=== PATIENT | female | born 1935 | race Caucasian/White ===

== ENCOUNTER 2016-08-21 12:59 | Emergency (ER) | payer MEDICARE, OTHER ==
[~2016-08-21] VITALS: Ht 157.5 cm; Wt 54.0 kg
[~2016-08-21 12:59] MED LIST: PRED20 PO; SULF1TAB47 PO; THYR15 PO
[2016-08-21 13:16] VITALS: BP 133/73; PULSE 57; RESP 16; TEMP 97.6; O2SAT 97
[2016-08-21 13:25] VITALS: BP 145/60; PULSE 54; RESP 18; O2SAT 98
--- NOTE | 2016-08-21 13:57 | PD ---
HPI Chief Complaint: Cardiac Complaint Time Seen by Provider: 13:45 Travel History International Travel<30 days: No Contact w/Intl Traveler<30days: No Traveled to known affect area: No History of Present Illness HPI This 81-year-old female says she woke up this morning vertigo. The vertigo lasted for several hours and is likely resolved. She has a friend who checked her pulse and told her that her heart was stopping of the period he is not having any chest pain or shortness of breath. She has no history of heart disease. She is here for evaluation of the skipped beat. She says she has had vertigo in the past but not for a while. She has no headache. She is on no medication. Her friend did give her an aspirin prior to coming here. She is not having any pain now [facility] Past Medical History Medical History: Denies Significant Hx Diabetes: No Diminished Hearing: Yes Immunizations Current: No Thyroid Disease: Yes Tetanus Vaccination: Unknown Influenza Vaccination: No ?: Not Past Surgical History Hysterectomy: Yes Tonsillectomy: Yes Social History Alcohol Use: Yes ([facility]) Tobacco Use: No Substance Use: No Allergies-Medications (Allergen,Severity, Reaction): Coded Allergies: Penicillin (Verified Allergy, Mild, 08/21/16) Reported Meds & Prescriptions Reported Meds & Active Scripts Active No Active Prescriptions or Reported Medications Review of Systems General / Constitutional: No: Fever, Chills Eyes: No: Diploplia, Blurred Vision HENT: Positive: Vertigo Cardiovascular: No: Chest Pain or Discomfort, Palpitations Respiratory: No: Cough, Shortness of Breath Gastrointestinal: No: Vomiting, Diarrhea Genitourinary: No: Urgency, Frequency Musculoskeletal: No: Myalgias Skin: No Rash, No Itching Neurologic: No: Weakness Hematologic/Lymphatic: No: Easy Bruising Physical Exam Narrative GENERAL: Well-developed female. Heart rate is 52 SKIN: Focused skin assessment warm/dry. HEAD: Atraumatic. Normocephalic. EYES: Pupils equal and round. No scleral icterus. No injection or drainage. ENT: No nasal bleeding or discharge. Mucous membranes pink and moist. NECK: Trachea midline. No JVD. CARDIOVASCULAR: Regular rate and rhythm. No murmur appreciated. RESPIRATORY: No accessory muscle use. Clear to auscultation. Breath sounds equal bilaterally. GASTROINTESTINAL: Abdomen soft, non-tender, nondistended. Hepatic and splenic margins not palpable. MUSCULOSKELETAL: No obvious deformities. No clubbing. No cyanosis. No edema. NEUROLOGICAL: Awake and alert. No obvious cranial nerve deficits. Motor grossly within normal limits. Normal speech. PSYCHIATRIC: Appropriate mood and affect; insight and judgment normal. Data Data Last Documented VS Vital Signs Date Time Temp Pulse Resp B/P Pulse Ox O2 Delivery O2 Flow Rate FiO2 08/21/16 14:33 47 18 134/70 98 Room Air 08/21/16 13:16 97.6 Orders Complete Blood Count With Diff (08/21/16 13:53) Comprehensive Metabolic Panel (08/21/16 13:53) Troponin I (08/21/16 13:53) Urinalysis - C+S If Indicated (08/21/16 13:53) Magnesium (Mg) (08/21/16 13:53) Thyroid Stimulating Hormone (08/21/16 13:53) Labs Laboratory Tests Test 08/21/16 08/21/16 13:38 14:40 White Blood Count 7.2 TH/MM3 Red Blood Count 4.39 MIL/MM3 Hemoglobin 13.2 GM/DL Hematocrit 40.3 % Mean Corpuscular Volume 91.8 FL Mean Corpuscular Hemoglobin 30.1 PG Mean Corpuscular Hemoglobin 32.8 % Concent Red Cell Distribution Width 13.5 % Platelet Count 202 TH/MM3 Mean Platelet Volume 8.2 FL Neutrophils (%) (Auto) 60.8 % Lymphocytes (%) (Auto) 31.4 % Monocytes (%) (Auto) 5.7 % Eosinophils (%) (Auto) 1.2 % Basophils (%) (Auto) 0.9 % Neutrophils # (Auto) 4.3 TH/MM3 Lymphocytes # (Auto) 2.3 TH/MM3 Monocytes # (Auto) 0.4 TH/MM3 Eosinophils # (Auto) 0.1 TH/MM3 Basophils # (Auto) 0.1 TH/MM3 CBC Comment DIFF FINAL Differential Comment Sodium Level 142 MEQ/L Potassium Level 4.0 MEQ/L Chloride Level 106 MEQ/L Carbon Dioxide Level 27.2 MEQ/L Anion Gap 9 MEQ/L Blood Urea Nitrogen 14 MG/DL Creatinine 0.83 MG/DL Estimat Glomerular Filtration 66 ML/MIN Rate Random Glucose 140 MG/DL Calcium Level 8.9 MG/DL Magnesium Level 2.2 MG/DL Total Bilirubin 0.4 MG/DL Aspartate Amino Transf 19 U/L (AST/SGOT) Alanine Aminotransferase 19 U/L (ALT/SGPT) Alkaline Phosphatase 88 U/L Troponin I LESS THAN 0.02 NG/ML Total Protein 7.2 GM/DL Albumin 3.6 GM/DL Thyroid Stimulating Hormone 3.540 uIU/ML 3rd Gen Urine Collection Type CLEAN CATCH Urine Color YELLOW Urine Turbidity CLOUDY Urine pH 7.5 Urine Specific [place] 1.010 Urine Protein NEG mg/dL Urine Glucose (UA) NEG mg/dL Urine Ketones NEG mg/dL Urine Occult Blood SMALL Urine Nitrite NEG Urine Bilirubin NEG Urine Leukocyte Esterase TRACE Urine RBC 0-3 /hpf Urine WBC 0-2 /hpf Urine Amorphous Sediment LARGE Microscopic Urinalysis Comment CULT NOT INDICATED MDM Medical Decision Making Medical Screen Exam Complete: Yes Emergency Medical Condition: Yes Medical Record Reviewed: Yes Differential Diagnosis Differential includes dysrhythmia, vertigo, Narrative Course Patient had vertigo at home which is improving. I don't find any neurologic deficits. Her concern was an irregular pulse found by her friend. She has been on a monitor and has occasional APCs which I believe is the source of the irregularity. Her lab work is unremarkable. She is stable for discharge Diagnosis Primary Impression: Vertigo Additional Impression: Atrial premature contractions Scripts No Active Prescriptions or Reported Meds Disposition: 01 DISCHARGE HOME Condition: Stable Cristo Jackson MD Aug 21, 2016 13:57
[2016-08-21 14:07] LABS: AUTOMATED NEUTROPHIL # 4.3 TH/MM3 (1.8-7.7); BASOPHIL # 0.1 TH/MM3 (0-0.2); BASOPHIL % 0.9 % (0.0-2.0); EOSINOPHIL # 0.1 TH/MM3 (0-0.4); EOSINOPHIL % 1.2 % (0.0-4.0); HEMATOCRIT 40.3 % (35.0-46.0); HEMO FLAGS DIFF FINAL; LYMPH % 31.4 % (9.0-44.0); LYMPHOCYTE # 2.3 TH/MM3 (1.0-4.8); MEAN CELL VOLUME 91.8 FL (80.0-100.0); MEAN CORPUSCULAR HEMOGLOBIN 30.1 PG (27.0-34.0); MEAN CORPUSCULAR HGB CONC 32.8 % (32.0-36.0); MONO % 5.7 % (0.0-8.0); NEUT % 60.8 % (16.0-70.0); PLATELET COUNT 202 TH/MM3 (150-450); RED BLOOD COUNT 4.39 MIL/MM3 (4.00-5.30); RED CELL DISTRIBUTION WIDTH 13.5 % (11.6-17.2); WHITE BLOOD COUNT 7.2 TH/MM3 (4.0-11.0)
[2016-08-21 14:14] LABS: CHLORIDE 106 MEQ/L (98-107); SODIUM (NA) 142 MEQ/L (136-145)
[2016-08-21 14:18] LABS: ANION GAP 9 MEQ/L (5-15); BICARBONATE 27.2 MEQ/L (21.0-32.0); BLOOD UREA NITROGEN 14 MG/DL (7-18); MAGNESIUM 2.2 MG/DL (1.5-2.5)
[2016-08-21 14:21] LABS: ALT (GPT) 19 U/L (10-53); AST (GOT) 19 U/L (15-37); GLOMERULAR FILTRATION RATE 66 ML/MIN (>89)
[2016-08-21 14:22] LABS: TOTAL BILIRUBIN ADULT 0.4 MG/DL (0.2-1.0)
[2016-08-21 14:24] LABS: ALKALINE PHOSPHATASE 88 U/L (45-117)
[2016-08-21 14:33] VITALS: BP 134/70; PULSE 47; RESP 18; O2SAT 98
[2016-08-21 14:50] LABS: BLOOD, URINE SMALL (NEG); GLUCOSE,URINE NEG (NEG); KETONE, URINE NEG (NEG); NITRITE,URINE NEG (NEG); PH, URINE 7.5 (5.0-8.5)
[2016-08-21 14:58] LABS: COMMENT (UR) CULT NOT INDICATED; CULTURE IF INDICATED CULT NOT INDICATED; METHOD OF COLLECTION CLEAN CATCH; RBC, URINE 0-3 /hpf (0-3); URINE COLOR YELLOW (YELLW/STRAW); WBC, URINE 0-2 /hpf (0-5)
[2016-08-21 15:41] VITALS: BP 134/70
--- NOTE | 2016-08-22 09:59 | EKG ---
Date Performed: 08/21/2016 Time Performed: 13:39:35 PTAGE: 81 years EKG: SINUS BRADYCARDIA BORDERLINE ECG PREVIOUS TRACING : 07/21/2008 16.14 DOCTOR: [place] Interpretating Date/Time 08/22/2016 09:58:46
== END 2016-08-21 15:44 | disposition home or self-care (01) ==
LOC: PHED 12:59
DX: R42 Dizziness and giddiness (principal); I49.1 Atrial premature depolarization
CPT/HCPCS: 80053; 81001; 83735; 84443; 84484; 85025; 93005; 99283